=== PATIENT | male | born 1995 | race Caucasian/White ===

== ENCOUNTER 2019-08-22 19:30 | Emergency (ER) | payer BC, SELFPAY ==
--- NOTE | ~2019-08-22 | XR_ITS ---
EXAMINATION: XR chest 1V portable 08/22/2019 20:01 INDICATION: Chest pain PROCEDURE: AP portable chest COMPARISON: No prior studies for comparison. FINDINGS: The lungs are clear. The cardiomediastinal silhouette is within normal limits. There are no pleural effusions. There is no pneumothorax suspected. IMPRESSION: 1: NO ACUTE CARDIOPULMONARY DISEASE. Reviewed, dictated and finalized at location A.
[2019-08-22 19:37] VITALS: BP 142/93; PULSE 87; RESP 18; TEMP 36.9; O2SAT 100
[2019-08-22 19:43] VITALS: PULSE 92
--- NOTE | 2019-08-22 19:53 | ECG_ITS ---
Measurements Intervals [place] Rate: 93 P: 28 SD: 158 QRS: 33 QRSD: 86 T: 13 QT: 330 QTc: 411 Interpretive Statements SINUS RHYTHM EARLY PRECORDIAL R/S TRANSITION BORDERLINE ECG Electronically Signed On 08-23-2019 7:46:01 CDT by Chidi Bonds D.O.
--- NOTE | 2019-08-22 19:57 | ED.CHESTPAIN ---
HPI - Chest Pain General Chief Complaint: Chest Pain Stated Complaint: chest pressure Time Seen by Provider: 08/22/19 19:39 Source: patient Mode of arrival: ambulatory Limitations: no limitations History of Present Illness HPI narrative: 23 yo male who presents with c/o mid sternal chest press. PAtient states he developed pain at 2 30 am this morning. He reports his pain has been constant but it worsed at 6 30 am when he woke up this morning. He has taken tums for his pain but reports he still continued to have pain. He denies fever, nausea, vomiting or sob with his pain. He states his pain is minimal now, and he rates pain 1/10. He denies leg swelling or calf pain. His pain is not worse with inspiration or exeration. MD complaint: chest pain Related Data Home Medications Medication Instructions Recorded Confirmed metformin 500 mg PO DAILY 08/22/19 08/22/19 montelukast 10 mg PO DAILY 08/22/19 08/22/19 Allergies Allergy/AdvReac Type Severity Reaction Status Date / Time phenylephrine AdvReac Mild Other Verified 08/22/19 19:41 [From [facility]] Review of Systems Review of Systems: All systems reviewed & are unremarkable except as noted in HPI and below Constitutional: Constitutional: Denies chills, Denies fever(s) and Denies weakness ENT: Denies dizziness Cardiovascular: Cardiovascular: Reports chest pain Respiratory: Respiratory: Reports cough (2 months ago) and Denies dyspnea Musculoskeletal: Musculoskeletal: Denies back pain Integumentary/Breasts: Skin/Breast: Denies breast pain PMFSH Past Medical History Medical History (Updated 08/22/19 @ 23:49 by Saundra Nelson MD) Healthy adult Laryngeal polyp Social History Social History (Updated 08/22/19 @ 23:44 by Saundra Nelson MD) Smoking status: Never smoker Alcohol intake: never Substance use: never Comments heart disease in family history surgical history - laryngeal polyp removal as child Exam Narrative: Exam Narrative: GENERAL: Well-appearing, well-nourished, and in no acute distress. HEAD: Normocephalic, atraumatic EYES: PERRLA and EOMI, conjunctiva clear without discharge THROAT:Mucous membranes moist, Oropharynx normal without erythema, exudate, peritonsillar swelling or fluctuance NECK: Supple, without lymphadenopathy or mass RESPIRATORY: No respiratory distress, Airway patent, Respirations non-labored, Clear to auscultation without rales, rhonchi or wheeze HEART: Regular rate and rhythm. No murmur heard. Normal peripheral pulses. ABDOMEN: Soft, nontender, nondistended, normal active bowel sounds. No masses. No rebound or guarding, No organomegaly. EXTREMITIES: No edema, normal strength with full range of motion. negative nick's signs SKIN: Warm, dry, normal color without rash NEURO: Alert and oriented x3. CN 2-12 grossly intact. No focal deficits. PSYCH: Normal mood and affect. Course Reevaluation(s) Reevaluation #1: Patient reports his pain is 0.5 /10. I discussed labs are unremarkable. His is PERC negative and very low risk for PE. This is atypical for angina. His mother is at bedside and he will follow up with PCP Date: 08/22/19 Time: 23:47 Vital Signs Vital signs: Vital Signs Temperature 98.4 F 08/22/19 19:37 Pulse Rate 87 08/22/19 19:37 Respiratory Rate 18 08/22/19 19:37 Blood Pressure 142/93 H 08/22/19 19:37 Pulse Oximetry 100 08/22/19 19:37 Temperature 98.4 F 08/22/19 19:37 Pulse Rate 85 08/22/19 23:33 Respiratory Rate 18 08/22/19 23:33 Blood Pressure 134/83 08/22/19 23:33 Pulse Oximetry 98 08/22/19 23:33 MDM - Chest Pain Lab Data Attestation: I reviewed the patient's lab results. Result diagrams: 08/22/19 19:56 08/22/19 19:56 Labs: Lab Results 08/22/19 08/22/19 08/22/19 Range/Units 19:56 19:56 19:56 WBC 10.9 H (4.5-10.0) K/mm3 RBC 5.01 (4.6-6.20) M/mm3 Hgb 15.1 (14.0-18.0) g/dL Hct 45.
[2019-08-22 20:01] LABS: Basophils Percent Auto 0.3 % (0.2-1.2); Eosinophils Absolute Auto 0.1 K/mm3 (0-0.3); Eosinophils Percent Auto 0.9 % (0-4.4); Hematocrit 45.5 % (42.0-52.0); Hemoglobin 15.1 g/dL (14.0-18.0); Immature Granulocyte Absolute 0.12 K/mm3 (0.00-0.031); Immature Granulocyte Percent A 1.1 % (0-0.5); Lymphocytes Absolute Auto 2.47 K/mm3 (0.9-3.2); Lymphocytes Percent Auto 22.6 % (18.3-44.2); Mean Corpuscular HGB Conc 33.2 g/dl (32-36); Mean Corpuscular Hemoglobin 30.1 pg (26-34); Mean Corpuscular Volume 90.8 fl (80-100); Monocytes Absolute Auto 1.1 K/mm3 (0.1-0.6); Monocytes Percent Auto 10.3 % (2.6-8.5); Neutrophils Absolute Auto 7.1 K/mm3 (1.3-6.7); Neutrophils Percent Auto 64.8 % (45.5-73.1); Platelet Count Result 369 k/mm3 (150-375); Red Blood Count 5.01 M/mm3 (4.6-6.20); Red Cell Distribution Width 12.3 % (11.5-14.5); White Blood Count 10.9 K/mm3 (4.5-10.0)
[2019-08-22] MEDS: ASPIRIN 81 MG CHEWABLE TABLET 324 MG PO (20:03)
--- NOTE | 2019-08-22 20:05 | PC.NURSE ---
Patient resting in stretcher in NAD with mother at bedside, they deny further needs at this time. Call light within reach.
[2019-08-22 20:10] LABS: INR 0.9; Prothrombin Time 11.7 Seconds (11.1-14.7)
[2019-08-22 20:11] LABS: Partial Thromboplastin Time 37.6 SECONDS (22.3-36.8)
[2019-08-22 20:15] LABS: Blood Urea Nitrogen 11 mg/dL (9-20); Calcium 9.7 mg/dL (8.4-10.2); Carbon Dioxide 34 mmol/L (22-30); Chloride 99 mmol/L (98-107); Estimated CRCL calculation 131 ml/min; Estimated Glomerular Filt Rate > 60; Glucose 103 mg/dL (75-110); Sodium 141 mmol/L (137-145)
[2019-08-22 20:27] LABS: Troponin I < 0.012 ng/mL (0.000-0.034)
[2019-08-22 20:38] VITALS: BP 123/86; PULSE 83; RESP 16; O2SAT 97
--- NOTE | 2019-08-22 22:02 | PC.NURSE ---
Patient remains resting in stretcher with mother at bedside. They deny any needs at this time, call light remains within reach.
[2019-08-22 22:03] VITALS: BP 120/75; PULSE 92; RESP 17; O2SAT 100
[2019-08-22] MEDS: BELLADONNA ALK/PHENOB ELIX 10 ML, MAG HYDROX/ALUMINUM HYD/SIMETH 30 ML, LIDOCAINE HCL 2... PO (22:10)
[2019-08-22 23:33] VITALS: BP 134/83; PULSE 85; RESP 18; O2SAT 98
[2019-08-22 23:33] LABS: Troponin I < 0.012 ng/mL (0.000-0.034)
[2019-08-22 23:54] VITALS: BP 134/83; PULSE 84; RESP 18; O2SAT 98
== END 2019-08-22 23:55 | disposition home or self-care (01) ==
PROVIDERS: Emergency Provider General Practice; PCP Internal Medicine
DX: R07.89 Other chest pain (principal); R94.31 Abnormal electrocardiogram [ECG] [EKG]
CPT/HCPCS: 36415; 71045; 80048; 84484; 85025; 85610; 85730; 93005; 99284; A9270

== ENCOUNTER 2021-04-12 03:39 | Emergency (ER) | payer BC, SELFPAY ==
[2021-04-12 03:58] VITALS: BP 136/74; PULSE 93; RESP 16; TEMP 36.8; O2SAT 100
--- NOTE | 2021-04-12 04:04 | ED.GENADULT ---
HPI - General Adult General Chief complaint: Unspecified Stated complaint: wound check Time Seen by Provider: 04/12/21 03:59 History of Present Illness HPI narrative: Patient is a 25-year-old gentleman who presents the emergency department with chief complaint of bleeding blister sites on scrotum. Patient reports he had several small blood blisters that he popped and the area continue to bleed for several hours. Patient states upon arrival to the emergency department bleeding is currently controlled patient denies any other injuries denies extensive blood loss. Related Data Allergies Allergy/AdvReac Type Severity Reaction Status Date / Time pseudoephedrine Allergy Nausea Verified 04/12/21 04:03 [From [facility]] Review of Systems Review of Systems: A 10 system review of systems was completed on the patient and is negative except for what is stated in the HPI. Nursing and ancillary documentation was reviewed. Exam Narrative: GENERAL: Well-appearing, well-nourished, and in no acute distress. HEAD: Normocephalic, atraumatic. EYES: PERRLA and EOMI. ENT: Nares clear, no rhinorrhea or epistaxis. Mucous membranes moist. NECK: Supple. CHEST: Clear to auscultation. No respiratory distress. HEART: Regular rate and rhythm. No murmur heard. Normal peripheral pulses. ABDOMEN: Soft, nontender, nondistended, normal active bowel sounds. : There is a small abrasion present on the left scrotum currently there is no active bleeding EXTREMITIES: Normal range of motion. No edema. SKIN: Warm, dry, no rash. NEURO: No focal deficits. Alert and oriented x3. PSYCH: Normal mood and affect. Course Vital Signs Vital signs: Vital Signs Temperature 36.8 C 04/12/21 03:58 Pulse Rate 93 04/12/21 03:58 Respiratory Rate 16 04/12/21 03:58 Blood Pressure 136/74 04/12/21 03:58 Pulse Oximetry 100 04/12/21 03:58 Temperature 36.8 C 04/12/21 03:58 Pulse Rate 93 04/12/21 03:58 Respiratory Rate 16 04/12/21 03:58 Blood Pressure 136/74 04/12/21 03:58 Pulse Oximetry 100 04/12/21 03:58 Medical Decision Making Vital Signs Vital Signs: Vital Signs Temperature 36.8 C 04/12/21 03:58 Pulse Rate 93 04/12/21 03:58 Respiratory Rate 16 04/12/21 03:58 Blood Pressure 136/74 04/12/21 03:58 Pulse Oximetry 100 04/12/21 03:58 Temperature 36.8 C 04/12/21 03:58 Pulse Rate 93 04/12/21 03:58 Respiratory Rate 16 04/12/21 03:58 Blood Pressure 136/74 04/12/21 03:58 Pulse Oximetry 100 04/12/21 03:58 Discharge Plan Discharge Clinical Impression: Abrasion of scrotum Qualifiers: Encounter type: initial encounter Qualified Code(s): S30.813A - Abrasion of scrotum and testes, initial encounter Patient Disposition: Home, Self-Care Condition: Stable Instructions: Antibiotic Form, Abrasion (ED) Follow-up/Referrals: Alisha,Ramon Arthur MD [Primary Care Provider] - Time of Disposition: 04:07
== END 2021-04-12 04:22 | disposition home or self-care (01) ==
LOC: ANHED 04:11
PROVIDERS: Emergency Provider Emergency Medicine; PCP Internal Medicine
DX: S30.812A Abrasion of penis, initial encounter (principal); X58.XXXA Exposure to other specified factors, initial encounter
CPT/HCPCS: 99281

== ENCOUNTER 2022-07-06 09:05 | Emergency (ER) | payer BC, SELFPAY ==
[2022-07-06 09:17] VITALS: BP 147/86; PULSE 85; RESP 16; TEMP 36.4; O2SAT 99
--- NOTE | 2022-07-06 09:20 | ED.EAR ---
HPI - Ear Problem General Chief complaint: Ear Stated complaint: Right Ear Irritation Time Seen by Provider: 07/06/22 09:34 Source: patient, RN notes reviewed and old records reviewed Mode of arrival: ambulatory Limitations: no limitations History of Present Illness HPI Narrative: 26-year-old male presents to the [facility] with right ear discomfort. Has been using qtip. Patient states he sometimes gets earwax impaction in his ear and needs a cleaned out Denies any upper respiratory symptoms. Denies fevers Related Data Home Medications Medication Instructions Recorded Confirmed No Home Medications 07/06/22 07/06/22 Allergies Allergy/AdvReac Type Severity Reaction Status Date / Time pseudoephedrine Allergy Nausea Verified 07/06/22 09:07 [facility] Review of Systems Review of Systems: All systems reviewed & are unremarkable except as noted in HPI and below Constitutional: Constitutional: Reports no additional constitutional complaints Eyes: Eyes: Reports no additional eye complaints ENT: Reports as per HPI Cardiovascular: Cardiovascular: Reports no additional cardiovascular complaints, Denies chest pain and Denies dyspnea Respiratory: Respiratory: Reports no additional respiratory complaints, Denies chest congestion, Denies cough and Denies dyspnea Gastrointestinal: Gastrointestinal: Reports no additional gastrointestinal complaints, Denies abdominal pain, Denies nausea and Denies vomiting Musculoskeletal: Musculoskeletal: Reports no additional musculoskeletal complaints Integumentary/Breasts: Skin/Breast: Reports system reviewed and no additional complaints, except as docu Neurologic: Reports system reviewed and no additional complaints, except as documented Psychiatric: Psychiatric: Reports no additional psychiatric complaints Allergic/Immunologic: Allergic/Immunologic: Reports no additional allergic/immunologic complaints [facility] Past Medical History Medical History Benign tumor of throat Dyslipidemia Hypomagnesemia Impaired fasting blood sugar Vitamin B12 deficiency Vitamin D deficiency Social History Social History Smoking status: Never smoker Alcohol intake: current Alcohol use details: rarely every couple months Substance use: never Substance use type: does not use Lack of Transportation: No Lack of Food: Never True Current Housing: I Have Housing Concerned About Future Housing: No Difficulty Paying Gas/Electric Bills: No Difficulty Paying for Meds: No Currently Unemployed: No Difficulty w/ Childcare or Family Care: No Living arrangements: with friend(s) Occupation/Education: occupation Gender identity (if verbalized by the patient): Male Comments At the time of my signature, I reviewed and agree with the nursing past medical, surgical, social, and family history. There is no relevant family history pertinent to the patient complaint. Exam Const: General: cooperative, healthy appearing, comfortable, no acute distress, well developed, alert and well nourished Nutritional Appearance: well nourished Orientation/consciousness: patient oriented x3 Limitations: no limitations HENMT: Head: normal to inspection Ears: hearing grossly normal bilaterally, external ears normal, TM's normal bilaterally and Abnormal EAC present cerumen impaction on the right; no erythema and no EA tenderness Face/Nose/Sinus: Normal external nose present, Normal nares present, Normal nasal mucous membranes and turbinates present and normal facial exam Face and sinus: normal facial exam Mouth: Yes Normal oral and palatal mucosa present, Yes lip normal and Yes moist mucous membranes Throat: posterior oropharynx normal and uvula midline Eyes: General: appearance normal, both eyes and all related structures Alignment and Position: alignment normal Periorbital: periorb
== END 2022-07-06 10:21 | disposition home or self-care (01) ==
PROVIDERS: Emergency Provider Nurse Practitioner
DX: H61.21 Impacted cerumen, right ear (principal); E78.5 Hyperlipidemia, unspecified
CPT/HCPCS: 69209; 99213; G0463

== ENCOUNTER 2022-11-29 12:34 | Emergency (ER) | payer BC, SELFPAY ==
--- NOTE | ~2022-11-29 | CT_ITS ---
EXAMINATION: CT abdomen pelvis w con DATE: 11/29/2022 14:47 INDICATION: Left groin pain. TECHNIQUE: Computed tomography (CT) of the abdomen and pelvis was performed with 100 mL Omnipaque 350 intravenous contrast. Automated exposure control and iterative reconstruction technique were employe d. The dose-length product was 1564.34 mGy-cm. COMPARISON: None. FINDINGS: The visualized portions of the lung bases demonstrate mild atelectasis. No pleural effusion . The heart size is normal. No pericardial effusion. The liver is normal. Calcifications in the splee n are consistent with old granulomatous disease. The gallbladder, pancreas, adrenal glands, and kidne ys are normal. There are no dilated loops of bowel. The appendix is normal. There is a 15 x 12 mm lef t external iliac lymph node. There is fat stranding in left inguinal region. There is no hernia. Ther e are Schmorl's nodes at multiple levels in the spine. IMPRESSION: 1. Subcutaneous fat stranding in left inguinal region, consistent with inflammation. 2. Mildly enlarged left external iliac lymph node, likely reactive. Reviewed, dictated and finalized at location A. IMPRESSION: 1. Subcutaneous fat stranding in left inguinal region, consistent with inflamma tion. 2. Mildly enlarged left external iliac lymph node, likely reactive.
[2022-11-29 12:35] VITALS: BP 135/86; PULSE 90; RESP 20; TEMP 36.6; O2SAT 100
[2022-11-29] MEDS: MORPHINE SULFATE (*CRX) 4 MG/ML INJ IV PUSH (14:19)
[2022-11-29] MEDS: ONDANSETRON INJ 4 MG/2 ML VIAL IV PUSH (14:19)
[2022-11-29 14:35] LABS: Basophils Percent Auto 0.3 % (0.2-1.2); Eosinophils Absolute Auto 0.1 K/mm3 (0-0.3); Eosinophils Percent Auto 0.5 % (0-4.4); Hematocrit 45.2 % (42.0-52.0); Immature Granulocyte Absolute 0.07 K/mm3 (0.00-0.031); Immature Granulocyte Percent A 0.6 % (0-0.5); Lymphocytes Absolute Auto 1.45 K/mm3 (0.9-3.2); Lymphocytes Percent Auto 12.9 % (18.3-44.2); Mean Corpuscular HGB Conc 33.2 g/dl (32-36); Mean Corpuscular Hemoglobin 30.9 pg (26-34); Mean Platelet Volume 8.8 fl (7.4-10.4); Neutrophils Absolute Auto 8.7 K/mm3 (1.3-6.7); Neutrophils Percent Auto 76.7 % (45.5-73.1); Platelet Count Result 383 k/mm3 (150-375); Red Blood Count 4.86 M/mm3 (4.6-6.20); Red Cell Distribution Width 12.5 % (11.5-14.5); White Blood Count 11.3 K/mm3 (4.5-10.0)
[2022-11-29 14:42] LABS: Estimated CRCL calculation 128 ml/min; Estimated Glomerular Filt Rate > 60
[2022-11-29 14:44] LABS: Alanine Aminotransferase 47 U/L (6-50); Alkaline Phosphatase 132 U/L (38-126); Anion Gap 7 mmol/L (8-16); Aspartate Amino Transferase 32 U/L (17-59); Bilirubin,Total 1.3 mg/dL (0.2-1.3); Blood Urea Nitrogen 10 mg/dL (9-20); Calcium 9.9 mg/dL (8.4-10.2); Carbon Dioxide 33 mmol/L (22-30); Chloride 100 mmol/L (98-107); Estimated CRCL calculation 141 ml/min; Estimated Glomerular Filt Rate > 60; Glucose 104 mg/dL (65-110); Potassium 4.2 mmol/L (3.4-5.0); Sodium 140 mmol/L (137-145)
--- NOTE | 2022-11-29 16:07 | ED.GENADULT ---
HPI - General Adult General Chief complaint: Extremity Problem,Nontraumatic Stated complaint: left sided groin pain Time Seen by Provider: 11/29/22 13:04 History of Present Illness HPI narrative: Patient is a 26-year-old male who presents ER with left groin pain. Sudden onset beginning last night. Reports he moved his leg in awkward position and felt some pain. Its increased today. Worse with palpation and physical movement. No urinary frequency urgency or dysuria. He is passing gas and has no abdominal discomfort. Without diarrhea. He has noticed no bruising or redness to the area. No alleviating factors outside of rest. Related Data Allergies Allergy/AdvReac Type Severity Reaction Status Date / Time pseudoephedrine AdvReac Nausea Verified 11/29/22 14:00 [From [facility]] Review of Systems Review of Systems: All systems reviewed & are unremarkable except as noted in HPI and below Constitutional: Constitutional: Denies chills, Denies fatigue and Denies fever(s) Cardiovascular: Cardiovascular: Denies chest pain, Denies rapid heart rate and Denies radiating jaw, neck or arm pain Gastrointestinal: Gastrointestinal: Denies abdominal pain, Denies nausea and Denies vomiting Genitourinary: Genitourinary: Denies dysuria, Denies testicular pain and Denies urinary frequency Comments: Groin pain Musculoskeletal: Musculoskeletal: Denies arthralgias, Denies joint swelling and Denies muscle cramps PMFSH Past Medical History Medical History (Updated 11/29/22 @ 16:15 by Art Beltran MD) Acute sinusitis Benign tumor of throat Dyslipidemia Hypomagnesemia Impaired fasting blood sugar Vitamin B12 deficiency Vitamin D deficiency Social History Social History ) Smoking status: Never smoker Alcohol intake: current Alcohol use details: rarely every couple months Substance use: never Substance use type: does not use Lack of Transportation: No Lack of Food: Never True Current Housing: I Have Housing Concerned About Future Housing: No Difficulty Paying Gas/Electric Bills: No Difficulty Paying for Meds: No Currently Unemployed: No Difficulty w/ Childcare or Family Care: No Living arrangements: with friend(s) Occupation/Education: occupation Gender identity (if verbalized by the patient): Male Exam Narrative: GENERAL: Well-appearing, well-nourished, and in no acute distress. HEAD: Normocephalic, atraumatic. ENT: Mucous membranes moist. CHEST: Clear to auscultation. No respiratory distress. HEART: Regular rate and rhythm. Normal peripheral pulses. ABDOMEN: Soft, nontender, nondistended. Tender palpation over the left groin without asymmetric swelling. EXTREMITIES: Normal range of motion. No edema. SKIN: Warm, dry, no rash. NEURO: Alert and oriented x3. PSYCH: Normal mood and affect. Course Course Emergency Course: Patient informed of results. Will treat with anti-inflammatories at home. Patient reports he jumped over a fence in the last week and could potentially suffer new injury at that point but no other acute injury to the lower body. Vital Signs Vital signs: Vital Signs Temperature 97.9 F 11/29/22 12:35 Pulse Rate 90 11/29/22 12:35 Respiratory Rate 11/29/22 12:35 Blood Pressure 135/86 11/29/22 12:35 Pulse Oximetry 100 11/29/22 12:35 Oxygen Delivery Room Air 11/29/22 12:35 Temperature 97.9 F 11/29/22 12:35 Pulse Rate 90 11/29/22 12:35 Respiratory Rate 11/29/22 12:35 Blood Pressure 135/86 11/29/22 12:35 Pulse Oximetry 100 11/29/22 12:35 Oxygen Delivery Room Air 11/29/22 12:35 Medical Decision Making Vital Signs Vital Signs: Vital Signs Temperature 97.9 F 11/29/22 12:35 Pulse Rate 90 11/29/22 12:35 Respiratory Rate 11/29/22 12:35 Blood Pressure 135/86 11/29/22 12:35 Pulse Oximetry 100 11/29/22 12:35 Oxygen Delivery Room Air
[2022-11-29] MEDS: KETOROLAC 30 MG/ML VIAL (*BKC) IV PUSH (16:09)
== END 2022-11-29 16:37 | disposition home or self-care (01) ==
PROVIDERS: Emergency Provider Emergency Medicine; PCP Family Medicine
DX: R59.1 Generalized enlarged lymph nodes (principal); E78.5 Hyperlipidemia, unspecified; E53.8 Deficiency of other specified B group vitamins; E55.9 Vitamin D deficiency, unspecified
CPT/HCPCS: 36415; 74177; 80053; 85025; 96374; 96375; 99284; J1885; J2270; J2405; Q9967

== ENCOUNTER 2022-11-30 23:48 | Observation (INO) | payer BC, SELFPAY ==
--- NOTE | ~2022-11-30 | US_ITS ---
Testicular ultrasound with doppler. Indication: Left scrotal pain. Technique: Real-time sonography the scrotum was performed. Color flow Doppler and Doppler spectral an alysis were performed. Findings: The testes are homogeneous in echotexture bilaterally. There is no evidence of an intrates ticular mass. The right testis measures 4.6 x 2.7 x 3.0 cm and the left 3.7 x 2.1 x 2.6 cm. There is color-flow seen to both testes. Arterial and venous spectral waveforms are seen in both testes. There is no sonographic evidence of torsion. Probable mild hypervascularity of the left epididymis. Minima l bilateral hydroceles are present. Probable borderline left varicocele. Impression: Possible left epididymitis. Minimal bilateral hydroceles. Reviewed, dictated and finalized at location . Impression: Possible left epididymitis. Minimal bilateral hydroceles.
--- NOTE | ~2022-11-30 | CT_ITS ---
CT of the Abdomen and Pelvis: Indication: Left inguinal pain and swelling Technique: 2.5 mm axial scans were obtained through the abdomen and pelvis following intravenous adm inistration of 100 cc of Omnipaque 350. Dose reduction technique was used on this scan by utilizing a utomated exposure control and iterative reconstruction technique. The dose-length product (DLP) was 1 891.44 mGy-cm. COMPARISON: 11/29/2022 Findings: Scans through the lung bases are unremarkable. The liver, spleen, pancreas, gallbladder, adrenals and kidneys are within normal limits. No evidence of aortic aneurysm. No lymphadenopathy. No bowel obstruction or bowel wall thickening. There is no evidence to suggest acute appendicitis. Images through the pelvis were performed. Urinary bladder unremarkable. Prostate gland and seminal ve sicles are unremarkable. No ascites. There is a single enlarged left inguinal lymph node measuring 1.6 cm in diameter, with rounded morpho logy, with mild haziness/inflammatory stranding in the subcutaneous fat in the left inguinal/groin re gion. Appearance is similar to prior exam. Impression: Single mildly enlarged left inguinal lymph node with haziness/inflammatory stranding in the left ingu inal/groin subcutaneous fat. Findings suggest infectious/inflammatory process, similar in appearance to prior exam. Reviewed, dictated and finalized at location . Impression: Single mildly enlarged left inguinal lymph node with haziness/inflammatory stra nding in the left inguinal/groin subcutaneous fat. Findings suggest infectious/ inflammatory process, similar in appearance to prior exam.
[2022-11-30 23:52] VITALS: BP 136/74; PULSE 98; RESP 15; TEMP 36.4; O2SAT 100
--- NOTE | 2022-12-01 00:13 | ED.GENADULT ---
HPI - General Adult General Chief complaint: Urogenital-Male Stated complaint: groin pain;testicle swelling Time Seen by Provider: 11/30/22 23:58 History of Present Illness HPI narrative: Patient 26-year-old gentleman presents emerged from with chief complaint of pain and swelling in the left inguinal area. Patient reports he was seen in the emergency department on the and reports that he had pain and swelling in the groin area. The patient was diagnosed with lymphadenopathy at that time and reports that he is continue to have worsening pain and swelling is down in the scrotum and the testicle. The patient reports the left testicle is tender to touch reports there is redness to the left hemiscrotum denies crepitance denies black necrotic tissue patient denies dysuria. Related Data Allergies Allergy/AdvReac Type Severity Reaction Status Date / Time pseudoephedrine AdvReac Nausea Verified 12/01/22 00:00 [From [facility]] Review of Systems Review of Systems: A 10 system review of systems was completed on the patient and is negative except for what is stated in the HPI. Nursing and ancillary documentation was reviewed. [facility] Past Medical History Medical History Acute sinusitis Benign tumor of throat Dyslipidemia Hypomagnesemia Impaired fasting blood sugar Vitamin B12 deficiency Vitamin D deficiency Social History Social History Smoking status: Never smoker Alcohol intake: current Alcohol use details: rarely every couple months Substance use: never Substance use type: does not use Lack of Transportation: No Lack of Food: Never True Current Housing: I Have Housing Concerned About Future Housing: No Difficulty Paying Gas/Electric Bills: No Difficulty Paying for Meds: No Currently Unemployed: No Difficulty w/ Childcare or Family Care: No Living arrangements: with friend(s) Occupation/Education: occupation Gender identity (if verbalized by the patient): Male Exam Narrative: GENERAL: Well-appearing, well-nourished, and in no acute distress. HEAD: Normocephalic, atraumatic. EYES: PERRLA and EOMI. ENT: Nares clear, no rhinorrhea or epistaxis. Mucous membranes moist. NECK: Supple. CHEST: Clear to auscultation. No respiratory distress. HEART: Regular rate and rhythm. No murmur heard. Normal peripheral pulses. ABDOMEN: Soft, tenderness to palpation in the left inguinal region there is swelling there is redness of the soft tissue. There is no crepitance or fluctuance, nondistended, normal active bowel sounds. : There is redness of the left hemiscrotum there is tenderness to palpation of the left testicle no evidence of Maria Elena gangrene EXTREMITIES: Normal range of motion. No edema. SKIN: Warm, dry, no rash. NEURO: No focal deficits. Alert and oriented x3. PSYCH: Normal mood and affect. Course Vital Signs Vital signs: Vital Signs Temperature 36.4 C 11/30/22 23:52 Pulse Rate 98 11/30/22 23:52 Respiratory Rate 11/30/22 23:52 Blood Pressure 136/74 11/30/22 23:52 Pulse Oximetry 100 11/30/22 23:52 Oxygen Delivery Room Air 11/30/22 23:52 Temperature 36.4 C 11/30/22 23:52 Pulse Rate 98 11/30/22 23:52 Respiratory Rate 15 11/30/22 23:52 Blood Pressure 136/74 11/30/22 23:52 Pulse Oximetry 100 11/30/22 23:52 Oxygen Delivery Room Air 11/30/22 23:52 Medical Decision Making MDM Narrative Medical decision making narrative: Differential diagnosis includes Maria Elena's gangrene, epididymal orchitis, incarcerated hernia, cellulitis Vital Signs Vital Signs: Vital Signs Temperature 36.4 C 11/30/22 23:52 Pulse Rate 98 11/30/22 23:52 Respiratory Rate 15 11/30/22 23:52 Blood Pressure 136/74 11/30/22 23:52 Pulse Oximetry 100 11/30/22 23:52 Oxygen Delivery Room Air 11/30/22 23:52
[2022-12-01 00:38] LABS: Basophils Percent Auto 0.3 % (0.2-1.2); Eosinophils Absolute Auto 0.2 K/mm3 (0-0.3); Eosinophils Percent Auto 1.2 % (0-4.4); Hematocrit 38.7 % (42.0-52.0); Hemoglobin 12.9 g/dL (14.0-18.0); Immature Granulocyte Absolute 0.08 K/mm3 (0.00-0.031); Immature Granulocyte Percent A 0.6 % (0-0.5); Lymphocytes Absolute Auto 1.99 K/mm3 (0.9-3.2); Lymphocytes Percent Auto 14.7 % (18.3-44.2); Mean Corpuscular HGB Conc 33.3 g/dl (32-36); Mean Corpuscular Hemoglobin 31.2 pg (26-34); Mean Corpuscular Volume 93.5 fl (80-100); Mean Platelet Volume 8.7 fl (7.4-10.4); Monocytes Absolute Auto 1.3 K/mm3 (0.1-0.6); Monocytes Percent Auto 9.7 % (2.6-8.5); Neutrophils Absolute Auto 9.9 K/mm3 (1.3-6.7); Neutrophils Percent Auto 73.5 % (45.5-73.1); Platelet Count Result 327 k/mm3 (150-375); Red Blood Count 4.14 M/mm3 (4.6-6.20); Red Cell Distribution Width 12.2 % (11.5-14.5); White Blood Count 13.5 K/mm3 (4.5-10.0)
[2022-12-01] MEDS: ONDANSETRON INJ 4 MG/2 ML VIAL IV PUSH ×2 (00:40→12:31)
[2022-12-01] MEDS: SODIUM CHLORIDE 0.9% IV 1,000 ML 999 ML IV CONT (00:40)
[2022-12-01] MEDS: MORPHINE SULFATE (*CRX) 4 MG/ML INJ IV PUSH ×2 (00:40→16:40)
[2022-12-01 00:47] LABS: Alanine Aminotransferase 31 U/L (6-50); Albumin Level 4.3 g/dL (3.5-5.1); Alkaline Phosphatase 96 U/L (38-126); Anion Gap 11 mmol/L (8-16); Aspartate Amino Transferase 24 U/L (17-59); Bilirubin,Total 0.9 mg/dL (0.2-1.3); Blood Urea Nitrogen 12 mg/dL (9-20); Carbon Dioxide 29 mmol/L (22-30); Chloride 100 mmol/L (98-107); Estimated CRCL calculation 117 ml/min; Estimated Glomerular Filt Rate > 60; Glucose 108 mg/dL (65-110); Lipase 31 U/L (23-300); Potassium 3.8 mmol/L (3.4-5.0); Sodium 140 mmol/L (137-145)
[2022-12-01 00:48] LABS: Lactic Acid Reflex 0.9 mmol/L (0.7-2.0)
[2022-12-01 08:56] LABS: Add Urine Microscopic? YES; Appearance Urine Clear (Clear); Bacteria Urine None Seen /hpf; Bilirubin Urine Negative (Negative); Blood Urine Negative (Negative); Color Urine Dark Yellow (Yellow); Glucose Urine UA Negative (Negative); Ketones Urine Trace mg/dL (Negative); Leukocyte Esterase Ur Negative LEU/UL (Negative); Nitrate Urine Negative (Negative); Non Pathogenic Casts 0-2; Protein Urine Trace mg/dL (Negative); RBC Urine 0-2 /hpf (0-2); Specific Grav Ur 1.024 (1.001-1.035); Squamous Epithelial Cell Urine None seen /hpf (Few); WBC Urine 0-5 /hpf
--- NOTE | 2022-12-01 09:40 | ADMGEN ---
This patient, Erick Guzman, was admitted to Medical Room 340-01. Patient/family oriented to hospital policies and general routines including ID bracelet, bed and alarms, visiting hours, pain management, procedures, bathroom and other care routines, personal items, smoking policy, room service/diet, and visiting hours. Information on how to activate the Rapid Response Team has been discussed. Patient/Family are encouraged to report perceived risks to care and to ask questions if they do not understand what they are told or what they should do.
--- NOTE | 2022-12-01 10:19 | PM.IMHP ---
H&P: HPI History of Present Illness Date/Time: 12/01/22 10:19 Chief Complaint: Pain and swelling in the left inguinal area.? Narrative: 26yo male with impaired fasting glucose, B12 deficiency and benign throat tumor resection here for pain and swelling in the left inguinal area.?Patient was seen in outpatient setting on 11/07 for URI symptoms and diagnosed with sinusitis treated with Augmentin for 10 days. Patient presented to the ED on 11/29 for sudden onset of left groin pain after moving his left leg awkwardly. He had jumped over a fence causing some scratches to his LE but no trauma to the groin. WBC 11K. CT A/P showing subcutaneous fat stranding in left inguinal area with mildly enlarged left external iliac LN. He was discharged home on Naproxen and Onarga. Patient developed fevers to 102 with chills. He noted increasing swelling and redness to the left groin. Also with nausea with slight headache. He denies CP, SOB, palpitations, abdominal pain, back pain, urinary symptoms, pedal edema or LE erythema. Vaccines are UTD. He has a cough occasionally productive of yellow sputum going on for the past few months. He has seasonal allergies. No tobacco use and no hx of asthma. He snores but no apneic spells per fiancee. He He called his doctor and Clindamycin was called in but only took one dose. Patient returns to the ED with complaints of pain and swelling in the left inguinal area.?He continued to have worsening pain and edema down into his scrotum. Left testicle is tender to touch. In the ED, he was afebrile and hemodynamically stable. White count was 13K. Repeat CT of the abdomen/ pelvis shows single mildly enlarged left inguinal lymph node with haziness/inflammatory stranding in the left inguinal/ groin subcutaneous fat. Scrotal ultrasound shows possible left epididymitis and minimal bilateral hydroceles. No evidence of torsion. Normal vascular flow to the testicles. Patient was given Levaquin, Zofran and morphine. He was given IV fluids. He was admitted for further care. Review of Systems Review of Systems: All systems reviewed & are unremarkable except as noted in HPI and below PMFSH Past Medical History Medical History (Updated 12/01/22 @ 13:18 by Maikel Grubbs MD) Acute sinusitis Benign tumor of throat Dyslipidemia Hypomagnesemia Impaired fasting blood sugar Vitamin B12 deficiency Vitamin D deficiency Surgical History Surgical History (Updated 12/01/22 @ 13:13 by Maikel Grubbs MD) Hx of excision of mass throat mass removed Family History Family History (Updated 12/01/22 @ 13:14 by Maikel Grubbs MD) Grandparent Heart disease Other Leukemia Social History Social History (Updated 12/01/22 @ 13:15 by Maikel Grubbs MD) Social History: Lifelong nonsmoker. No history of drug use. Rare alcohol use. Lives home with his tyree. Full code. Nominates his mother to be the individual who would make medical decisions for him if he is unable. Smoking status: Never smoker Alcohol intake: never Alcohol use details: rarely every couple months Substance use: never Substance use type: does not use Lack of Transportation: No Lack of Food: Never True Current Housing: I Have Housing Concerned About Future Housing: No Difficulty Paying Gas/Electric Bills: No Difficulty Paying for Meds: No Currently Unemployed: No Education: High School Diploma/GED Difficulty w/ Childcare or Family Care: No Living arrangements: with friend(s) Occupation/Education: occupation Gender identity (if verbalized by the patient): Male Spiritual care concerns: No Meds Home Medications and Allergies Home Medications Medication Instructions Recorded Confirmed Type No Home Medications 12/01/22 12/01/22 History Allergies Allergy/AdvReac Type Severity Reaction Status Date / Time pseudoephedrine AdvReac Nausea Verified 12/01/22 00:00 [From Sudafed] Vital Signs Vital
[2022-12-01] MEDS: HYDROcodone/acetaminophen (*CRX) 5-325 MG TABLET 1 TAB PO (13:58)
[2022-12-01 14:00] VITALS: BP 130/66; PULSE 96; RESP 16; TEMP 36.6; O2SAT 96
--- NOTE | 2022-12-01 15:15 | WPDURCON ---
Assessment and Plan Assessment and plan (1) Epididymitis: Code(s): N45.1 - Epididymitis Status: Acute (2) Cellulitis of left groin: Code(s): L03.314 - Cellulitis of groin Status: Acute (3) Cellulitis, scrotum: Code(s): N49.2 - Inflammatory disorders of scrotum Status: Acute (4) Morbid obesity: Code(s): E66.01 - Morbid (severe) obesity due to excess calories Status: Acute Assessment and Plan: 26-year-old gentleman with morbid obesity. He has left epididymitis as well left inguinal/scrotal cellulitis. There does not appear to be any drainable fluid collection. CT scan without concern for Maria Elena gangrene. Plan --patient currently on empiric Levaquin. Given the lack of improvement, consider broadening antibiotic coverage while admitted. --chlamydia and gonorrhea testing is pending. Additionally, please send urine culture --encouraged scrotal elevation --there does not appear to be need for surgical intervention at this time. Recommend observation with continued antibiotics. Urology Consult Note HPI Date Seen: 12/01/22 Requesting Physician: Rox Tomlinson DO Primary Care Provider: Sebastian Bernal MD Consult Narrative Narrative: Erick Guzman is a 26 year old male with a 5 day history of left groin swelling. He was seen in the emergency department 3 days ago where he was found to have left pelvic lymphadenopathy. He was discharged home with oral Augmentin. Patient returned to the emergency department yesterday with persistent discomfort as well as left scrotal irritation as well. The patient had a fever at home, none since he arrived at the hospital. He denies nausea vomiting. Denies urinary symptoms. Patient was admitted to the hospital started Levaquin yesterday, he states no significant improvement or worsening of his symptoms since that time. Continues to feel discomfort in the left inguinal and superior scrotal skin PMFSH Past Medical History Medical History (Updated 12/01/22 @ 13:18 by Maikel Grubbs MD) Acute sinusitis Benign tumor of throat Dyslipidemia Hypomagnesemia Impaired fasting blood sugar Vitamin B12 deficiency Vitamin D deficiency Surgical History Surgical History (Updated 12/01/22 @ 13:13 by Maikel Grubbs MD) Hx of excision of mass throat mass removed Family History Family History (Updated 12/01/22 @ 13:14 by Maikel Grubbs MD) Grandparent Heart disease Other Leukemia Social History Social History (Updated 12/01/22 @ 13:15 by Maikel Grubbs MD) Social History: Lifelong nonsmoker. No history of drug use. Rare alcohol use. Lives home with his tyree. Full code. Nominates his mother to be the individual who would make medical decisions for him if he is unable. Smoking status: Never smoker Alcohol intake: never Alcohol use details: rarely every couple months Substance use: never Substance use type: does not use Lack of Transportation: No Lack of Food: Never True Current Housing: I Have Housing Concerned About Future Housing: No Difficulty Paying Gas/Electric Bills: No Difficulty Paying for Meds: No Currently Unemployed: No Education: High School Diploma/GED Difficulty w/ Childcare or Family Care: No Living arrangements: with friend(s) Occupation/Education: occupation Gender identity (if verbalized by the patient): Male Spiritual care concerns: No Meds Home Medications and Allergies Home Medications Medication Instructions Recorded Confirmed Type No Home Medications 12/01/22 12/01/22 History Allergies Allergy/AdvReac Type Severity Reaction Status Date / Time pseudoephedrine AdvReac Nausea Verified 12/01/22 00:00 [From Sudafed] Vital Signs Vital Signs - 24 hr 11/30/22 23:52 12/01/22 14:00 Temperature 36.4 C 36.6 C Pulse Rate 98 96 Respiratory Rate 15 16 Blood Pressure 136/74 130/66 Pulse Oximetry 100 96 Oxyg
[2022-12-01 17:14] LABS: Glucose Point of Care 90 mg/dl (65-105)
[2022-12-01 20:42] VITALS: BP 131/73; PULSE 95; RESP 20; TEMP 37; O2SAT 99
[2022-12-02 00:06] LABS: Glucose Point of Care 119 mg/dl (65-105)
[2022-12-02] MEDS: PIPERACILLN/TAZ 3.375GM/NS50ML 3.375 GM/50 ML BAG IVPB ×4 (00:08→17:52)
[2022-12-02 05:35] VITALS: BP 98/50; PULSE 81; RESP 18; TEMP 36.9; O2SAT 97
[2022-12-02 07:29] LABS: Basophils Percent Auto 0.3 % (0.2-1.2); Eosinophils Absolute Auto 0.2 K/mm3 (0-0.3); Eosinophils Percent Auto 1.6 % (0-4.4); Hematocrit 38.8 % (42.0-52.0); Hemoglobin 12.7 g/dL (14.0-18.0); Lymphocytes Absolute Auto 1.54 K/mm3 (0.9-3.2); Lymphocytes Percent Auto 14.8 % (18.3-44.2); Mean Corpuscular HGB Conc 32.7 g/dl (32-36); Mean Corpuscular Hemoglobin 30.8 pg (26-34); Mean Corpuscular Volume 94.2 fl (80-100); Mean Platelet Volume 8.8 fl (7.4-10.4); Monocytes Percent Auto 9.5 % (2.6-8.5); Neutrophils Absolute Auto 7.6 K/mm3 (1.3-6.7); Neutrophils Percent Auto 72.8 % (45.5-73.1); Platelet Count Result 354 k/mm3 (150-375); Red Blood Count 4.12 M/mm3 (4.6-6.20); Red Cell Distribution Width 12.2 % (11.5-14.5); White Blood Count 10.4 K/mm3 (4.5-10.0)
[2022-12-02 07:37] LABS: Estimated CRCL calculation 117 ml/min; Estimated Glomerular Filt Rate > 60
[2022-12-02 07:41] LABS: Hemoglobin A1C 5.5 % (<5.7)
[2022-12-02 08:14] LABS: Glucose Point of Care 173 mg/dl (65-105)
[2022-12-02 11:03] LABS: Folic Acid 8.9 ng/mL (2.76->20)
--- NOTE | 2022-12-02 11:53 | WPDUROPN2 ---
Progress Note: A&P Assessment and Plan (1) Epididymitis: Code(s): N45.1 - Epididymitis Status: Acute (2) Cellulitis, scrotum: Code(s): N49.2 - Inflammatory disorders of scrotum Status: Acute (3) Cellulitis of left groin: Code(s): L03.314 - Cellulitis of groin Status: Acute Plan - clinically improving on vanc and zosyn (improved wbc ct and erythema/edema are improving) - follow daily labs - scrotal support - no drainable fluid collection - will continue to follow Subjective Subjective Date/Time Seen: 12/02/22 11:53 Interval history: He is doing well. STates swelling is better and is feeling better Review of Systems Review of Systems: All systems reviewed & are unremarkable except as noted in HPI and below Exam Narrative: The patient is awake alert. He is in no acute distress. Breathing is unlabored. His abdomen is obese, soft, nontender. exam: There is induration and erythema in the left inguinal canal. There is no crepitus. Patient has bilateral descended testicles. The right testicle is soft, nontender, without masses. Left testicle is soft but mildly painful to palpation. There is swelling over the left epididymis with pain to palpation. Scrotal skin is soft without crepitus. The area of erythema has improved since yesterday (previously marked by Dr. Genao) Objective Data Vital Signs Vital Signs: Vital Signs - 24 hr 12/01/22 14:00 12/01/22 20:42 12/02/22 05:35 Temperature 36.6 C 37.0 C 36.9 C Pulse Rate 96 95 81 Respiratory Rate 16 20 18 Blood Pressure 130/66 131/73 98/50 L Pulse Oximetry 96 99 97 Intake/Output Intake/Output: Intake & Output 11/29/22 11/30/22 12/01/22 12/02/22 23:59 23:59 23:59 23:59 Intake Total 3252 770 Balance 3252 770 Meds/Results Medications: Active Medications Generic Name Dose Route Start Last Admin Trade Name Freq PRN Reason Stop Dose Admin Acetaminophen 650 mg 12/01/22 06:56 Acetaminophen 325 Mg Tablet PO Q4H PRN Mild Pain (1-3) or Fever Hydrocodone Bitart/Acetaminophen 1 tab 12/01/22 06:57 12/01/22 13:58 Hydrocodone/Acetaminophen (*Crx) 5-325 Mg Tablet PO 1 tab Q4H PRN Administration Pain Rated 4-6 Dextrose 12.5 gm 12/01/22 13:21 Dextrose 50% 25 Gm/50 Ml Syringe IV PUSH PRN PRN Hypoglycemia Protocol Enoxaparin Sodium 40 mg 12/02/22 09:00 12/02/22 08:13 Enoxaparin 40 Mg/0.4 Ml Syringe SUB-Q Not Given DAILY YOUSIF Glucagon 1 mg 12/01/22 13:21 Glucagon For Inj 1 Mg Vial IM PRN PRN Hypoglycemia Protocol Glucose 15 gm 12/01/22 13:21 Glucose Oral Gel 15 Gm Of Glucse In 37.5 Gm Tube PO PRN PRN Hypoglycemia Protocol Dextrose 1,000 mls @ 100 mls/hr 12/01/22 13:21 Dextrose 5% 1,000 Ml IVPB PRN PRN Hypoglycemia Protocol Piperacillin/Tazobactam/Dextrose 3.375 gm in 50 mls @ 100 mls/hr 12/02/22 00:00 12/02/22 05:55 Zosyn 3.375 Gm/Ns 50 Ml IVPB 100 mls/hr Q6H YOUSIF Administration Vancomycin HCl 1,500 mg in 500 mls @ 250 mls/hr 12/01/22 20:00 12/02/22 10:04 Vancomycin 1,500 Mg/D5w 500 Ml IVPB Infused Q12H YOUSIF Infusion Insulin Aspart 2 - 5 units 12/01/22 17:00 12/02/22 08:12 Insulin Aspart (*Bkc) 100 Units/Ml SUB-Q Not Given TIDWM YOUSIF Protocol Morphine Sulfate 4 mg 12/01/22 06:58 12/01/22 16:40 Morphine Sulfate (*Crx) 4 Mg/Ml Inj IV PUSH 4 mg Q2H PRN Administration Pain Rated 7-10 Ondansetron HCl 4 mg 12/01/22 11:30 12/01/22 12:31 Ondansetron Inj 4 Mg/2 Ml Vial IV PUSH 4 mg Q6H PRN Administration Nausea And Vomiting Radiology Results: ITS Impressions Abdomen/Pelvis CT 12/01/22 07:28 Impression: Single mildly enlarged left inguinal lymph node with haziness/inflammatory stranding in the left inguinal/groin subcutaneous fat. Findings suggest infectious/inflammatory process, similar in appearance t
[2022-12-02 12:03] LABS: Glucose Point of Care 87 mg/dl (65-105)
[2022-12-02 14:00] VITALS: BP 107/56; PULSE 83; RESP 16; TEMP 36.2; O2SAT 98
[2022-12-02] MEDS: ACETAMINOPHEN 325 MG TABLET 650 MG PO (15:34)
--- NOTE | 2022-12-02 16:57 | PM.IMPN ---
Progress Note: A&P Assessment and Plan (1) Cellulitis of left groin: Code(s): L03.314 - Cellulitis of groin Status: Acute Assessment and Plan: Patient developed fevers to 102 with chills and noted increasing swelling and redness to the left groin prompting his presentation to the ED. WBC was 13K but did not meet sepsis criteria. Repeat CT of the abdomen/pelvis shows single mildly enlarged left inguinal lymph node with haziness/inflammatory stranding in the left inguinal/ groin subcutaneous fat.? Scrotal ultrasound shows possible left epididymitis and minimal bilateral hydroceles.? No evidence of torsion.? Normal vascular flow to the testicles.? Patient was started on Levaquin but abx broadened to Zosyn and Vancomycin. [place] less likely this is related to STD but GC/Chlamydia testing ordered. BCx NGTD. Urology consulted and appreciate their input. WBC better. Exam improving. Possibly home tomorrow if continues to improve. (2) Epididymitis: Code(s): N45.1 - Epididymitis Status: Acute Assessment and Plan: As above. Follow up on STD testing (3) Impaired fasting blood sugar: Code(s): R73.01 - Impaired fasting glucose Status: Acute Assessment and Plan: A1c 5.5%. The patient's blood glucose was reviewed on 12/02 Glucose elevated to 173 this morning but otherwise has been okay. Okay to stop Accuchecks. (4) Morbid obesity: Code(s): E66.01 - Morbid (severe) obesity due to excess calories Status: Acute Assessment and Plan: BMI 41. Patient was educated about the benefits to adhering to a healthy lifestyle.? (5) Vitamin B12 deficiency: Code(s): E53.8 - Deficiency of other specified B group vitamins Status: Acute Assessment and Plan: B12 level low at 196. B12 injection x 1 and add oral B12. Etiology unclear. Check for IDB, Celiac, panc insufficiency given the hx of VitD deficiency as well Plan Lovenox for DVT prophylaxis. Subjective Date/time seen: 12/02/22 16:57 Interval history: 26yo male with impaired fasting glucose, B12 deficiency and obesity here for left groin pain. Feels better. Left groin area less edematous. Requesting to stop FSBS. Exam Narrative: AF 97.1 107/56 83 16 98% ra Gen - NARD Chest - lungs are clear to auscultation bilaterally CV - heart was regular rate and rhythm. S1-S2. Abd - abdomen was soft. Nontender. Obese. Positive bowel sounds. - Erythema to the left inguinal area is faded. It has spread slightly beyond the marked areas. Scrotum less erythematous. Ext - no pedla edema. Psych - normal mood and affect. Patient is pleasant and cooperative. Skin - As above o/w warm and dry. Objective Data Vital Signs Vital Signs: Vital Signs - 24 hr 12/01/22 20:42 12/02/22 05:35 12/02/22 14:00 Temperature 98.6 F 98.4 F 97.1 F L Pulse Rate 95 81 83 Respiratory Rate 20 18 16 Blood Pressure 131/73 98/50 L 107/56 L Pulse Oximetry 99 97 98 Intake/Output Intake/Output: Intake & Output 11/29/22 11/30/22 12/01/22 12/02/22 23:59 23:59 23:59 23:59 Intake Total 3252 870 Balance 3252 870 Meds/Results Medications: Active Medications Generic Name Dose Route Start Last Admin Trade Name Freq PRN Reason Stop Dose Admin Acetaminophen 650 mg 12/01/22 06:56 12/02/22 15:34 Acetaminophen 325 Mg Tablet PO 650 mg Q4H PRN Administration Mild Pain (1-3) or Fever Hydrocodone Bitart/Acetaminophen 1 tab 12/01/22 06:57 12/01/22 13:58 Hydrocodone/Acetaminophen (*Crx) 5-325 Mg Tablet PO 1 tab Q4H PRN Administration Pain Rated 4-6 Cyanocobalamin 1,000 mcg 12/02/22 16:40 Cyanocobalamin Inj 1,000 Mcg/Ml Vial IM WEEKLY YOUSIF Cyanocobalamin 1,000 mcg 12/03/22 09:00 Cyanocobalamin 1,000 Mcg Tablet PO QAM YOUSIF Dextrose 12.5 gm 12/01/22 13:21 Dextrose 50% 25 Gm/50 Ml Syringe IV PUSH PRN PRN Hypoglycemia Protoco
[2022-12-02] MEDS: CYANOCOBALAMIN INJ 1,000 MCG/ML VIAL 1000 MCG IM (17:52)
[2022-12-02 21:06] VITALS: BP 130/78; PULSE 86; RESP 18; TEMP 35.9; O2SAT 98
[2022-12-03] MEDS: HYDROcodone/acetaminophen (*CRX) 5-325 MG TABLET 1 TAB PO (01:21)
[2022-12-03] MEDS: PIPERACILLN/TAZ 3.375GM/NS50ML 3.375 GM/50 ML BAG IVPB ×2 (01:22→06:26)
[2022-12-03 06:00] VITALS: BP 119/68; PULSE 68; RESP 16; TEMP 35.7; O2SAT 99
[2022-12-03 07:26] LABS: Hematocrit 36.8 % (42.0-52.0); Hemoglobin 12.1 g/dL (14.0-18.0); Mean Corpuscular HGB Conc 32.9 g/dl (32-36); Mean Corpuscular Hemoglobin 31.1 pg (26-34); Mean Corpuscular Volume 94.6 fl (80-100); Mean Platelet Volume 8.8 fl (7.4-10.4); Platelet Count Result 375 k/mm3 (150-375); Red Blood Count 3.89 M/mm3 (4.6-6.20); Red Cell Distribution Width 12.2 % (11.5-14.5); White Blood Count 8.2 K/mm3 (4.5-10.0)
[2022-12-03 07:33] LABS: INR 0.9; Prothrombin Time 12.5 Seconds (11.1-14.7)
[2022-12-03 07:34] LABS: Estimated CRCL calculation 128 ml/min; Estimated Glomerular Filt Rate > 60
[2022-12-03 07:54] LABS: Vitamin D 25 Hydroxy 22.7 ng/mL
[2022-12-03] MEDS: CYANOCOBALAMIN 1,000 MCG TABLET 1000 MCG PO (08:33)
--- NOTE | 2022-12-03 10:03 | WPDUROPN2 ---
Progress Note: A&P Assessment and Plan (1) Epididymitis: Code(s): N45.1 - Epididymitis Status: Acute (2) Cellulitis, scrotum: Code(s): N49.2 - Inflammatory disorders of scrotum Status: Acute (3) Cellulitis of left groin: Code(s): L03.314 - Cellulitis of groin Status: Acute Plan Clinically improving. Wbc ct has normalized and erythema/edema is better on vanc and zosyn. Will defer timing of discharge to hospitalist. Emphasized need for scrotal support at home. He needs to f/u with Dr. Genao in 2-3 wks. He can call [phone] to arrange appt. Subjective Subjective Date/Time Seen: 12/03/22 10:03 Interval history: Feeling better. Notes less swelling Review of Systems Review of Systems: All systems reviewed & are unremarkable except as noted in HPI and below Exam Narrative: AF 97.1 107/56 83 16 98% ra Gen - NARD Chest - unlabored breathing Abd - abdomen soft, ND. - Erythema in left inguinal canal continues to improve. Scrotum is less edematous and less erythematous. Psych - normal mood and affect. Patient is pleasant and cooperative. Skin - As above o/w warm and dry. Objective Data Vital Signs Vital Signs: Vital Signs - 24 hr 12/02/22 14:00 12/02/22 21:06 12/03/22 06:00 Temperature 36.2 C L 35.9 C L 35.7 C L Pulse Rate 83 86 68 Respiratory Rate 16 18 16 Blood Pressure 107/56 L 130/78 119/68 Pulse Oximetry 98 98 99 Intake/Output Intake/Output: Intake & Output 11/30/22 12/01/22 12/02/22 12/03/22 23:59 23:59 23:59 23:59 Intake Total 3252 1620 990 Balance 3252 1620 990 Meds/Results Medications: Active Medications Generic Name Dose Route Start Last Admin Trade Name Freq PRN Reason Stop Dose Admin Acetaminophen 650 mg 12/01/22 06:56 12/02/22 15:34 Acetaminophen 325 Mg Tablet PO 650 mg Q4H PRN Administration Mild Pain (1-3) or Fever Hydrocodone Bitart/Acetaminophen 1 tab 12/01/22 06:57 12/03/22 01:21 Hydrocodone/Acetaminophen (*Crx) 5-325 Mg Tablet PO 1 tab Q4H PRN Administration Pain Rated 4-6 Cyanocobalamin 1,000 mcg 12/02/22 16:40 12/02/22 17:52 Cyanocobalamin Inj 1,000 Mcg/Ml Vial IM 1,000 mcg WEEKLY YOUSIF Administration Cyanocobalamin 1,000 mcg 12/03/22 09:00 12/03/22 08:33 Cyanocobalamin 1,000 Mcg Tablet PO 1,000 mcg QAM YOUSIF Administration Dextrose 12.5 gm 12/01/22 13:21 Dextrose 50% 25 Gm/50 Ml Syringe IV PUSH PRN PRN Hypoglycemia Protocol Enoxaparin Sodium 40 mg 12/02/22 09:00 12/03/22 08:33 Enoxaparin 40 Mg/0.4 Ml Syringe SUB-Q Not Given DAILY YOUSIF Glucagon 1 mg 12/01/22 13:21 Glucagon For Inj 1 Mg Vial IM PRN PRN Hypoglycemia Protocol Glucose 15 gm 12/01/22 13:21 Glucose Oral Gel 15 Gm Of Glucse In 37.5 Gm Tube PO PRN PRN Hypoglycemia Protocol Dextrose 1,000 mls @ 100 mls/hr 12/01/22 13:21 Dextrose 5% 1,000 Ml IVPB PRN PRN Hypoglycemia Protocol Piperacillin/Tazobactam/Dextrose 3.375 gm in 50 mls @ 100 mls/hr 12/02/22 00:00 12/03/22 06:26 Zosyn 3.375 Gm/Ns 50 Ml IVPB 100 mls/hr Q6H YOUSIF Administration Vancomycin HCl 1,500 mg in 500 mls @ 250 mls/hr 12/01/22 20:00 12/03/22 08:33 Vancomycin 1,500 Mg/D5w 500 Ml IVPB 250 mls/hr Q12H YOUSIF Administration Morphine Sulfate 4 mg 12/01/22 06:58 12/01/22 16:40 Morphine Sulfate (*Crx) 4 Mg/Ml Inj IV PUSH 4 mg Q2H PRN Administration Pain Rated 7-10 Ondansetron HCl 4 mg 12/01/22 11:30 12/01/22 12:31 Ondansetron Inj 4 Mg/2 Ml Vial IV PUSH 4 mg Q6H PRN Administration Nausea And Vomiting Radiology Results: ITS Impressions Abdomen/Pelvis CT 12/01/22 07:28 Impression: Single mildly enlarged left inguinal lymph node with haziness/inflammatory stranding in the left inguinal/groin subcutaneous fat. Findings suggest infectious/inflammatory process, similar in appearance
--- NOTE | 2022-12-03 10:53 | PM.DS ---
DS: Admitting Diagnosis Discharge Date 12/03/22 Admitting Diagnosis Left groin pain and swelling DS: Discharge Diagnosis Discharge Diagnosis (1) Cellulitis of left groin: Code(s): L03.314 - Cellulitis of groin Status: Acute (2) Epididymitis: Code(s): N45.1 - Epididymitis Status: Acute (3) Impaired fasting blood sugar: Code(s): R73.01 - Impaired fasting glucose Status: Acute (4) Morbid obesity: Code(s): E66.01 - Morbid (severe) obesity due to excess calories Status: Acute (5) Vitamin B12 deficiency: Code(s): E53.8 - Deficiency of other specified B group vitamins Status: Acute DS: Summary Hospital Course Reason for hospitalization: 26yo male with impaired fasting glucose, B12 deficiency and obesity here for left groin pain. Please see H&P for details. Hospital Course: Patient developed fevers to 102 with chills and noted increasing swelling and redness to the left groin prompting his presentation to the ED. WBC was 13K but did not meet sepsis criteria. Repeat CT of the abdomen/pelvis shows single mildly enlarged left inguinal lymph node with haziness/inflammatory stranding in the left inguinal/ groin subcutaneous fat.?Scrotal ultrasound shows possible left epididymitis and minimal bilateral hydroceles.? No evidence of torsion.? Normal vascular flow to the testicles.?Patient was started on Levaquin but abx broadened to Zosyn and Vancomycin. [place] less likely this is related to STD but GC/Chlamydia testing ordered and is pending. BCx NGTD. Urology consulted and appreciate their input. WBC normal now and exam improving. He has known impaired fasting blood sugars in the past. A1c 5.5%. The patient's blood glucose was monitored with accuchecks. Patietn with BMI 41. Patient was educated about the benefits to adhering to a healthy lifestyle.?Patient has a hx of Vitamin B12 deficiency. B12 level low at 196. B12 injection x 1 and added oral B12. Etiology unclear. We checked IBD panel, Celiac panel. INR normal so VitK level probably okay. VitD level low and replacement ordered. He overall did well and wa able to be discharged home on 12/03/22. Status at Discharge Cognitive/behavioral status at discharge: stable Time Spent with Patient Time attestation: Total time spent providing and/or coordinating discharge services: 35 minutes Time spent: Greater than 30 minutes Exam Narrative: AF 96.3 119/68 68 16 99% ra Gen - NARD Chest - lungs are clear to auscultation bilaterally CV - heart was regular rate and rhythm. S1-S2. Abd - abdomen was soft. Nontender. Obese. Positive bowel sounds. - Erythema to the left inguinal area is less. Scrotum less erythematous. Ext - no pedal edema. Psych - normal mood and affect. Patient is pleasant and cooperative. Skin - As above o/w warm and dry. DS: Data Data Completed and Pending Labs on day of discharge: Labs from last 24 hours 12/03/22 12/02/22 12/02/22 07:15 12:00 07:12 WBC 8.2 RBC 3.89 L Hgb 12.1 L Hct 36.8 L MCV 94.6 MCH 31.1 MCHC 32.9 RDW 12.2 Plt Count 375 MPV 8.8 PT 12.5 INR 0.9 Creatinine 1.00 Estim Creat Clear Calc 128 Estimated GFR > 60 POC Capillary Glucose 87 Vitamin D 25-Hydroxy 22.7 Folate 8.9 TSH (Reflex) 5.860 H Free T4 Pending Vancomycin Trough 13.0 IgA Pending ANCA Screen Pending Proteinase 3 (PR3) Ab Pending Myeloperoxidase Ab Pending Tiss Transglutamin IgG Pending Tiss Transglut IgA Comm Pending Celiac Disease Interp Pending S.cerevisiae IgG Ab Pending S.cerevisiae IgA Ab Pending Preliminary micro results at discharge 12/01/22 14:03 Blood Culture - Preliminary Blood 12/01/22 14:03 Blood Culture - Preliminary Blood Discharge Plan Discharge Attending physician on discharge: Maikel Grubbs Consulting providers: Opal Genao Discharging
[2022-12-03 15:29] LABS: Free T4 Free Thyroxine Reflex 1.17 ng/dL (0.78-2.19)
[2022-12-03 16:41] LABS: Total Triiodothyronine (T3) 1.21 NG/ML (0.97-1.69)
--- NOTE | 2022-12-05 09:59 | PC.NURSE ---
Chlamydia and gonorrhea swabs are both negative. Dr. Humera kong.
[2022-12-06 22:45] LABS: Immunoglobulin A 184 mg/dL (47-310); TTG IGA AB <1.0 U/mL (<15.0)
[2022-12-11 14:17] LABS: ANCA Screen Negative (Negative); Myeloperoxidase Ab <1.0 AI (<1.0); Proteinase-3 Ab <1.0 AI (<1.0); S cerevisiae Ab (IgA) 14.3 U (<=20.0); S cerevisiae Ab (IgG) 14.2 U (<=20.0)
== END 2022-12-03 12:08 | disposition home or self-care (01) ==
LOC: ANHED 12-01 06:55 → ANH3MED 12-01 15:44
PROVIDERS: Internal Medicine; Admitting Provider Internal Medicine; Emergency Provider Emergency Medicine; PCP Family Medicine; Visit Provider Internal Medicine
DX: L03.314 Cellulitis of groin (principal); N45.1 Epididymitis; I86.1 Scrotal varices; R73.01 Impaired fasting glucose; R50.9 Fever, unspecified; D10.9 Benign neoplasm of pharynx, unspecified; D72.829 Elevated white blood cell count, unspecified; E78.5 Hyperlipidemia, unspecified; E55.9 Vitamin D deficiency, unspecified; E53.8 Deficiency of other specified B group vitamins; E66.01 Morbid (severe) obesity due to excess calories; Z68.41 Body mass index [BMI] 40.0-44.9, adult; F10.90 Alcohol use, unspecified, uncomplicated
CPT/HCPCS: 36415; 74177; 76870; 80053; 80202; 81001; 82306; 82565; 82607; 82746; 82784; 82948; 83036; 83605; 83690; 84439; 84443; 84480; 85025; 85027; 85610; 86036; 86364; 86671; 87040; 87491; 87591; 93976; 96361; 96365; 96366; 96367; 96372; 96374; 96375; 96376; 99285; A9270; G0378; J1650; J1956; J2270; J2405; J2543; J3370; J3420; J7030; Q9967

== ENCOUNTER 2023-05-17 13:46 | Outpatient (CLI) | payer BC, SELFPAY ==
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
== END 2023-05-17 13:47 | disposition home or self-care (01) ==
PROVIDERS: PCP Family Medicine; Visit Provider Family Medicine
DX: S09.90XA Unspecified injury of head, initial encounter (principal); X58.XXXA Exposure to other specified factors, initial encounter
CPT/HCPCS: 70450